=== PATIENT | male | born 1975 | race Caucasian/White ===

== ENCOUNTER 2023-01-06 11:48 | Emergency (ER) | payer BC, SELFPAY ==
[2023-01-06 12:03] VITALS: BP 140/85; PULSE 96; RESP 18; TEMP 36.6; O2SAT 97; BMI 27.6
--- NOTE | 2023-01-06 13:03 | ED.FALL ---
HPI - Fall General Date Seen: 01/06/23 Chief Complaint: Fall/Minor Trauma Stated Complaint: Fell, L side hip injury Time Seen by Provider: 01/06/23 11:49 Source: patient Mode of arrival: ambulatory Limitations: no limitations History of Present Illness HPI Narrative: Patient is a 47-year-old male presenting to the emergency department for left hip pain after a ground level fall this morning. Patient states he tripped over a chair causing her fall. S of pain to his left have some mild pain to elbows clots was able to walk in [employer] work. States that this going on pain has been getting worse despite pain medication taken at home. He noticed a hematoma on his left hip with pain better so he went to the urgent care and was sent here after x-rays show a large hematoma. No other concerns at this time. Denies numbness, weakness. Says his elbow pain has improved greatly not regularly use remember this time. Denies hitting his head Related Data Previous Rx's Medication Instructions Recorded oxycodone 5 mg tablet 5 mg PO Q6H PRN pain #6 tabs 01/06/23 Allergies Allergy/AdvReac Type Severity Reaction Status Date / Time adhesive tape Allergy Verified 01/06/23 12:03 Review of Systems Narrative: Negative unless stated in HPI Exam Narrative: Exam Narrative: Const: Well-nourished, Well-developed, in mild distress Eyes: PERRL, no conjunctival injection, and symmetrical lids HENT: Atraumatic external nose and ears. Moist mucous membranes. CV: Dorsalis pedis pulses +2 bilaterally MSK: Swelling and bruising knows to left hip, relatively firm hematoma felt, Normal Active ROM, no tenderness noted to the rest of joints and body Skin: Warm, Dry. No rashes or lesions. Neuro: Normal Muscle tone, No focal neurological deficits. Psych: Awake, Alert, & Oriented x3. Appropriate mood and affect. Const: Vital Signs, click to edit/add: Vital Signs - 24 hr 01/06/23 12:03 Temperature 97.9 F Pulse Rate [Pulse Oximeter] 96 Respiratory Rate 18 Blood Pressure [Ri ght Upper Arm] 140/85 H Pulse Oximetry 97 Oxygen Delivery Me thod Room Air Course Vital Signs Vital signs: Initial Vital Signs Temperature 97.9 F 01/06/23 12:03 Temperature Source Temporal Artery Scan 01/06/23 12:03 Pulse Rate 96 01/06/23 12:03 Pulse Rhythm Regular 01/06/23 12:03 Respiratory Rate 18 01/06/23 12:03 Blood Pressure 140/85 H 01/06/23 12:03 Blood Pressure Mean 103 01/06/23 12:03 Blood Pressure Position Sitting 01/06/23 12:03 Pulse Oximetry 97 01/06/23 12:03 Oxygen Delivery Method Room Air 01/06/23 12:03 Vital Signs Temperature 97.9 F 01/06/23 12:03 Pulse Rate 96 01/06/23 12:03 Respiratory Rate 18 01/06/23 12:03 Blood Pressure 140/85 H 01/06/23 12:03 Pulse Oximetry 97 01/06/23 12:03 Oxygen Delivery Method Room Air 01/06/23 12:03 Temperature 97.9 F 01/06/23 12:03 Pulse Rate 96 01/06/23 12:03 Respiratory Rate 18 01/06/23 12:03 Blood Pressure 140/85 H 01/06/23 12:03 Pulse Oximetry 97 01/06/23 12:03 Oxygen Delivery Method Room Air 01/06/23 12:03 MDM - Fall MDM Narrative Medical decision making narrative: Patient is a 47-year-old male presenting for left hip pain. He was concerned because the hematoma to his left hip has been getting bigger over the past few hours since his initial fall earlier this morning. Was sent to us from urgent care. Has no neurological issues and has good dorsalis pedis pulses. No other concerns at this time. Imaging was a reddish done showing this large hematoma with no signs of fracture. He is ambulatory and not believe further imaging is necessary. Since he is neurovascular intact in the hematoma was only been going for few hours and a belief is necessary to intervene. Symptoms should resolve on their own. Informed patient to follow-up with orthopedics or his primary care provider over the next 2-3 days if symptoms worsen. Patient states he is agreeable with this plan. Patient was requesting pain meds and concerning signs the Aleyda believe he is in relatively decent amount of pain. She will be prescribed a few oxycodone Discharge Plan Discharge Clinical Impression: Hematoma Patient Disposition: Home, Self-Care Condition: Stable Instructions: Bone Bruise (ED) Additional Instructions: Follow-up with [facility] over the next 2-3 days if hematoma continues to expand or if you develop any new or worsening symptoms Prescriptions: New oxycodone 5 mg tablet 5 mg PO Q6H PRN (Reason: pain) Qty: 6 0RF Follow Up/Referrals: Provider,Not a Local [Referring] - Stand Alone Forms: [facility] Info Instructions
== END 2023-01-06 13:17 | disposition home or self-care (01) ==
PROVIDERS: Emergency Provider Student in an Organized Health Care Education/Training Program; PCP Internal Medicine
DX: S70.02XA Contusion of left hip, initial encounter (principal); W18.30XA Fall on same level, unspecified, initial encounter
CPT/HCPCS: 99282

== ENCOUNTER 2023-10-10 19:53 | Emergency (ER) | payer OTHER, SELFPAY ==
[2023-10-10] VITALS (15 sets, daily range): BP systolic 140–154; BP diastolic 92–99; PULSE 74–89; RESP 18; TEMP 36.9; O2SAT 94–99; BMI 27.7
--- NOTE | 2023-10-10 20:05 | ED.CHESTPAIN ---
HPI - Chest Pain General Time Seen by Provider: 20:05 Date Seen: 10/10/23 Chief Complaint: Chest Pain Stated Complaint: Chest pains Time Seen by Provider: 10/10/23 20:05 Source: patient and RN notes reviewed Mode of arrival: ambulatory Limitations: no limitations History of Present Illness HPI narrative: Adolfo is a very pleasant 48-year-old gentleman with history of ADHD currently on methylphenidate for the past 3 months who comes to the emergency room with complaints of chest tightness as well as discomfort in his neck arm and left leg. Adolfo states that he really has not felt well for the past week. Tonight he describes chest tightness occurring at approximately 1530 hours after he had been sustaining a house today. He notes that it was fairly strong while he was sitting and the discomfort radiated into his left jaw the left side of his neck and into his left arm. He states he also noticed discomfort radiating into his left foot and ankle. He notes that these symptoms continue and they decided to come into the emergency room. His significant other notes that he seemed to be out of breath when hurrying to get into the car earlier in the evening. When he is still he does not have as much discomfort. He notes that currently he has an aching feeling in the left side of his chest and he does have discomfort in his toes. He has no history of heart problems although his mom has had to wear Holter monitor in the past. He does not use tobacco, has no history of addiction or drug use. He does use alcohol 2 to 3 times a week. He does not know his cholesterol. He did take a COVID test prior to arrival and that was negative at home. He does not report any symptoms of runny nose sore throat cough cold congestion or fever. Earlier in the past week he had noticed some chest tightness and feeling like he was hung over associated with feeling sweaty and cold. This lasted for 6-8 hours. He had just arrived in [place] after flying there. He states that he went to lay down in the hotel and this helped quite a bit. However, during the next few days he did feel quite right and thought maybe he had some motion sickness. He took Dramamine but it made it worse. He states that he has been noticing that his heart rate has been intermittently elevated. Normally he states that it run 75-80 and at times during the past week it was 115-125. He did have a harder time catching his breath during this time. He notes his blood pressure is higher as well and describes a 10-15 point elevation in the systolic blood pressure. This was all noted via his Apple watch. Adolfo denies lower extremity edema, history of DVT, cough, hemoptysis. He has not had any nausea or diarrhea. He has not had any recent trauma. Patient does see an online physician for his methylphenidate/ADHD needs. He is going to establish with Dr. Chapin, here at the [facility] on November 12. Related Data Home Medications ?Medication ?Instructions ?Recorded ?Confirmed methylphenidate HCl 27 mg 27 mg PO QAM 10/10/23 10/10/23 tablet,extended release 24 hr Allergies Allergy/AdvReac Type Severity Reaction Status Date / Time adhesive tape Allergy Verified 10/10/23 20:06 Review of Systems Status of ROS Reports: 10 or more systems reviewed and unremarkable except as noted in History and below Const Denies: fever, chills or fatigue Eyes Denies: change in vision or blurry vision ENMT Reports: neck pain (Left-sided); Denies: throat pain, throat swelling, difficulty swallowing, vertigo, nasal discharge or nasal congestion Cardio Reports: chest pain, palpitations (With rapid heart rate.) and shortness of breath with exertion; Denies: edema, swelling of feet/ankles or lightheadedness Resp Reports: shortness of breath; Denies: cough, wheezing or stridor GI Denies: abdominal pain, nausea, vomiting, diarrhea or difficulty swallowing Denies: painful urination or urinary frequency Musculo Reports: neck pain (Left-sided) and extremity pain (Left foot and ankle); Denies: back pain or extremity swelling Integ/Breast Denies: rash Neuro Denies: headache, numbness in extremities, weakness in extremities, lack of coordination, dizziness or vertigo Endo Denies: fatigue Allergy/Immuno Denies: throat swelling or wheezing PFSH PFS Social History Smoking Status: Never smoker Do you use any of these nicotine containing products: None Second hand tobacco smoke exposure: No How often do you have a drink containing alcohol: never How often do you have six or more drinks on one occasion: Never AUDIT-C Alcohol total score: 0 Non-prescribed substance use: denies use Exam Narrative Exam Narrative: Adolfo is alert and oriented. He is not in any acute distress. Appropriate color. EOM is full. Face symmetrical. Mentation normal, speech normal. Neck is supple without lymphadenopathy. No pain with palpation of the cervical midline. Negative Spurling sign. Patient does note when he turns his head to the left however he has increased neck pain. No change in arm or leg pain. Heart with regular rate and rhythm without murmur rub or additional heart sounds. Initially crackles noted in the left lower lobe but these cleared with deep inspiration. Abdomen soft nontender. Lower extremities without edema. No calf tenderness. Mild discomfort with palpation on the dorsal midfoot. No erythema ecchymosis. Good pedal pulses bilaterally and capillary refill is intact and brisk. Const Vital Signs, click to edit/add: Vital Signs - 24 hr 10/10/23 20:04 10/10/23 20:09 10/10/23 20:15 Temperature 98.5 F Pulse Rate 85 84 Pulse Rate [Right Pulse Oximeter] 82 Respiratory Rate 18 Blood Pressure Blood Pressure [Right Upper Arm] 154/95 H Pulse Oximetry 99 96 95 Oxygen Delivery Method Room Air 10/10/23 20:30 10/10/23 20:32 10/10/23 20:45 Temperature Pulse Rate 85 89 Pulse Rate [Right Pulse Oximeter] Respiratory Rate Blood Pressure 140/95 H Blood Pressure [Right Upper Arm] Pulse Oximetry 94 95 Oxygen Delivery Method 10/10/23 21:00 10/10/23 21:02 10/10/23 21:15 Temperature Pulse Rate 87 84 81 Pulse Rate [Right Pulse Oximeter] Respiratory Rate Blood Pressure 141/92 H Blood Pressure [Right Upper Arm] Pulse Oximetry 95 95 95 Oxygen Delivery Method 10/10/23 21:30 10/10/23 21:32 10/10/23 21:45 Temperature Pulse Rate 84 81 81 Pulse Rate [Right Pulse Oximeter] Respiratory Rate Blood Pressure 153/99 H Blood Pressure [Right Upper Arm] Pulse Oximetry 96 96 96 Oxygen Delivery Method 10/10/23 22:00 10/10/23 22:06 10/10/23 22:15 Temperature Pulse Rate 79 74 81 Pulse Rate [Right Pulse Oximeter] Respiratory Rate Blood Pressure Blood Pressure [Right Upper Arm] Pulse Oximetry 94 96 94 Oxygen Delivery Method Course Course ED Course: At this time patient does describe symptoms concerning for possible underlying angina, acute coronary event, possible PE. However, the left foot discomfort does not easily fit into these diagnoses. He did recently travel and thus I do think that PE, DVT is a possible consideration. He has no respiratory symptoms and his COVID test is negative and therefore I do not think that this is a viral cause. When he did turn his head he did have increased discomfort in his neck and therefore I must also consider a musculoskeletal etiology. At this time will order CBC, comprehensive, CRP, troponin, D-dimer, urinalysis chest x-ray monitor and storage bin tender. Reevaluation(s) Reevaluation #1: Initial cardiac enzyme negative. EKG reassuring. Patient notes that he may have had foot pain last week. Perhaps this is completely unrelated to his current chest discomfort. Because of negative test including D-dimer will give him a trial of Toradol 15 mg IV. Reevaluation #2: Nursing staff notes that patient's remembered that Adolfo is very sensitive to any adhesives. In the past with an IV he has actually gotten swelling of his arm requiring the treatment with prednisone. It appeared that the Tegaderm covering was the problem. We have now removed that covered his IV with gauze and small amount to [place] around the gauze but not touching the skin. Vital Signs Vital signs: Initial Vital Signs Temperature 98.5 F 10/10/23 20:04 Temperature Source Temporal Artery Scan 10/10/23 20:04 Pulse Rate 82 10/10/23 20:04 Pulse Rhythm Regular 10/10/23 20:04 Pulse Strength 3+ Normal 10/10/23 20:04 Respiratory Rate 18 10/10/23 20:04 Blood Pressure 154/95 H 10/10/23 20:04 Blood Pressure Mean 114 H 10/10/23 20:04 Blood Pressure Position Sitting 10/10/23 20:04 Pulse Oximetry 99 10/10/23 20:04 Oxygen Delivery Method Room Air 10/10/23 20:04 Vital Signs Temperature 98.5 F 10/10/23 20:04 Pulse Rate 82 10/10/23 20:04 Respiratory Rate 18 10/10/23 20:04 Blood Pressure 154/95 H 10/10/23 20:04 Pulse Oximetry 99 10/10/23 20:04 Oxygen Delivery Method Room Air 10/10/23 20:04 Temperature 98.5 F 10/10/23 20:04 Pulse Rate 81 10/10/23 22:15 Respiratory Rate 18 10/10/23 20:04 Blood Pressure 153/99 H 10/10/23 21:32 Pulse Oximetry 94 10/10/23 22:15 Oxygen Delivery Method Room Air 10/10/23 20:04 Medications Administered Medications: Discontinued Medications Generic Name Dose Route Start Last Admin Trade Name Germaine PRN Reason Stop Dose Admin Ketorolac Tromethamine 15 mg 10/10/23 22:01 10/10/23 22:13 Ketorolac 15 Mg/Ml Inj IVP 10/10/23 22:02 15 mg ONCE ONE Administration MDM - Chest Pain MDM Narrative Medical decision making narrative: 1. Atypical chest pain -patient has a reassuring EKG, 2 sets of negative cardiac enzymes and no evidence of arrhythmia on the monitor and storage bin tender. Given his symptoms however I do wish that he would have follow-up with Heart monitoring in the form of ZIO patch as well as stress test. He does not have an appointment with our clinic until November. Therefore will attempt to arrange ZIO patch, stress test on Wednesday. Patient should await phone call from the ER for scheduling. Patient did receive Toradol and has had resolution of his symptoms especially of his foot. Patient did receive baby aspirin prior to departure. 2. Left foot pain -at this time no known trauma. Patient notes that pain is improved after Toradol. 3. Disposition-home at this time. Patient agrees that he feels safe to go home. Will discontinue methylphenidate as perhaps this is increasing heart rate and blood pressure. This will be temporary until he is evaluated by stress test. Also advising against any activity that increases heart rate until stress test. Return to the emergency room as needed for worsening symptoms. Medical Records Data Attestation: I reviewed the patient's medical records. Lab Data Attestation: I reviewed the patient's lab results. Labs: Lab Results 10/10/23 10/10/23 10/10/23 Range/Units 20:25 20:30 22:00 WBC 5.54 (4.50-11.00) K/uL RBC 4.95 (4.30-5.90) m/uL Hgb 14.4 (13.5-17.5) gm/dL Hct 43.6 (37.0-53.0) % MCV 88 (80-100) fL MCH 29 (26-34) pg MCHC 33 (32-36) gm/dL RDW Coeff of Charly 11.8 (11.5-15.5) % Plt Count 211 (140-440) K/uL Neut % (Auto) 46.3 (42.0-72.0) % Lymph % (Auto) 38.8 (20-44) % [place] % (Auto) 11.7 H (0.0-11.0) % Eos % (Auto) 2.5 (0.0-7.0) % Baso % (Auto) 0.5 (0.0-3.0) % Neut # (Auto) 2.56 (1.7-7.0) K/uL Lymph # (Auto) 2.15 (0.90-2.90) K/uL [place] # (Auto) 0.60 (0.00-0.90) K/UL Eos # (Auto) 0.14 (0.00-0.50) K/uL Baso # (Auto) 0.03 (0.00-0.30) K/uL Abs Immat Gran (auto) 0.01 (0.00-0.30) K/uL Imm/Tot Granulo (auto) 0.2 % D-Dimer Quant (PE/DVT) < 0.27 (0.00-0.50) ug/ml Sodium 137 (135-149) mmol/L Potassium 4.1 (3.6-5.1) mmol/L Chloride 102 (96-114) mmol/L Carbon Dioxide 28 (20-32) mmol/L Anion Gap 7 (7-15) mEq/L BUN 20 (5-24) mg/dL Creatinine 1.1 (0.5-1.5) mg/dL Estimated Creat Clear 95.48 Estimated GFR 83 ml/min Glucose 92 (60-115) mg/dL Calcium 8.9 (8.4-10.6) mg/dL Magnesium 2.2 (1.5-2.6) mg/dL Total Bilirubin 0.4 (0.1-1.5) mg/dL AST 54 H (12-35) U/L ALT 75 H (4-50) U/L Alkaline Phosphatase 86 (40-150) U/L C-Reactive Protein < 0.5 L (0.5-1.0) mg/dL Total Protein 7.6 (6.0-8.3) g/dL Albumin 4.7 (3.3-5.0) g/dL Urine Color Yellow (Yellow) Urine Appearance Clear (Clear) Urine pH 7.0 (5.0-8.5) Ur Specific [place] >= 1.030 (1.000-1.030) Urine Protein Negative (Negative) Urine Glucose (UA) Negative (Negative) Urine Ketones Negative (Negative) Urine Blood Negative (Negative) Urine Nitrite Negative (Negative) Urine Bilirubin Negative (Negative) Urine Urobilinogen 0.2 (0.2-1.0) Ur Leukocyte Esterase Negative (Negative) Urine RBC 0-2 (0-2) Urine WBC 0-2 (0-5) Ur Squamous Epith Cells None (None-Few) Urine Bacteria None (None) POC Troponin I 0.00 L 0.00 L (0.01-0.04) ng/ml Imaging Data Chest x-ray: Attestation: I have reviewed the pertinent imaging results. My impression: By my read no acute findings. Radiologist's impression: No substantial pleural effusion. No definite focal pulmonary consolidation. Normal heart size. No acute osseous findings. IMPRESSION: No acute thoracic findings. ECG Data Attestation: I personally reviewed and interpreted this ECG as follows: ECG interpretation date: 10/10/23 ECG interpretation time: 21:09 Interpretation: EKG by my read shows sinus rhythm at a rate of 85. I do not note any acute ST or T-wave changes. QT and NV intervals within normal limits. Discharge Plan Discharge Clinical Impression: Atypical chest pain Patient Disposition: Home, Self-Care Condition: Improved Additional Instructions: At this time your EKGs and blood test for heart attack are negative. We have not seen any evidence of atrial fibrillation on our monitor in the ED. that being said, I strongly advise you to follow up with a physician for initiation of a ZIO patch or heart monitoring as well as stress test. I will have that arranged and have them give you a call on Wednesday. At this time I recommend you discontinue methylphenidate until we have ruled out any underlying heart issues. Recommend avoiding caffeine, any activity which is increases the heart rate at this time including sexual activity. Recommend baby aspirin 81 mg daily. Return to the emergency room for worsening symptoms and as needed. Prescriptions: No Action methylphenidate HCl 27 mg tablet extended release 24hr 27 mg PO QAM Follow Up/Referrals: Pari Chapin MD [Primary Care Provider] - Stand Alone Forms: [employer] Info Instructions
--- NOTE | 2023-10-10 20:25 | CRLHL7_ITS ---
For Patients: As a result of the Century Cures Act, medical imaging exams and procedure reports are released immediately into your electronic medical record. You may view this report before your referring provider. If you have questions, please contact your health care provider. INDICATION: Chest pain COMPARISON: 02/14/2017 chest radiograph TECHNIQUE: Single frontal radiographic view(s) of the chest. FINDINGS: No substantial pleural effusion. No definite focal pulmonary consolidation. Normal heart size. No acute osseous findings. IMPRESSION: No acute thoracic findings. Dictated by Gigi Argueta MD @ 10/10/2023 9:10:20 PM (Electronically Signed)
[2023-10-10 20:39] LABS: Basophils Absolute Auto 0.03 K/uL (0.00-0.30); Basophils Percent Auto 0.5 % (0.0-3.0); Eosinophils Absolute Auto 0.14 K/uL (0.00-0.50); Eosinophils Percent Auto 2.5 % (0.0-7.0); Hematocrit 43.6 % (37.0-53.0); Hemoglobin* 14.4 gm/dL (13.5-17.5); Immature Granulocytes Abs Auto 0.01 K/uL (0.00-0.30); Immature Granulocytes Pct Auto 0.2 %; Lymphocytes Absolute Auto 2.15 K/uL (0.90-2.90); Lymphocytes Percent Auto 38.8 % (20-44); Mean Corpuscular HGB Conc 33 gm/dL (32-36); Mean Corpuscular Hemoglobin 29 pg (26-34); Mean Corpuscular Volume 88 fL (80-100); Monocytes Percent Auto 11.7 % (0.0-11.0); Neutrophils Absolute Auto 2.56 K/uL (1.7-7.0); Neutrophils Percent Auto 46.3 % (42.0-72.0); Platelet Count* 211 K/uL (140-440); RDW Coefficient of Variation % 11.8 % (11.5-15.5); Red Blood Count 4.95 m/uL (4.30-5.90); White Blood Count* 5.54 K/uL (4.50-11.00)
[2023-10-10 20:40] LABS: Slide Review Reflex No
[2023-10-10 20:41] LABS: Appearance Urine Clear (Clear); Bilirubin Urine Negative (Negative); Blood Urine Negative (Negative); Color Urine Yellow (Yellow); Glucose Urine Negative (Negative); Ketones Urine Negative (Negative); Leukocyte Esterase Urine Negative (Negative); Nitrite Urine Negative (Negative); Protein Urine Negative (Negative); Specific Gravity Urine >= 1.030 (1.000-1.030); Urobilinogen Urine 0.2 (0.2-1.0)
[2023-10-10 20:50] LABS: RBC Urine 0-2 (0-2); WBC Urine 0-2 (0-5)
[2023-10-10 20:53] LABS: Albumin* 4.7 g/dL (3.3-5.0); Chloride* 102 mmol/L (96-114); Sodium* 137 mmol/L (135-149)
[2023-10-10 20:54] LABS: Potassium* 4.1 mmol/L (3.6-5.1)
[2023-10-10 20:56] LABS: Alkaline Phosphatase* 86 U/L (40-150); Anion Gap 7 mEq/L (7-15); Aspartate Amino Transferase* 54 U/L (12-35); Bilirubin Total* 0.4 mg/dL (0.1-1.5); Blood Urea Nitrogen* 20 mg/dL (5-24); Carbon Dioxide* 28 mmol/L (20-32); Creatinine* 1.1 mg/dL (0.5-1.5); Est. Creatinine Clearance* 95.48; Estimated Glomerular Filt Rate 83 ml/min; Total Protein* 7.6 g/dL (6.0-8.3)
[2023-10-10 20:57] LABS: Alanine Aminotransferase* 75 U/L (4-50); Calcium* 8.9 mg/dL (8.4-10.6); Glucose* 92 mg/dL (60-115); Magnesium* 2.2 mg/dL (1.5-2.6)
[2023-10-10 21:03] LABS: C Reactive Protein* < 0.5 mg/dL (0.5-1.0)
[2023-10-10 21:05] LABS: D Dimer Quantitative* < 0.27 ug/ml (0.00-0.50)
[2023-10-10] MEDS: KETOROLAC 15 MG/ML inj IVP (22:13)
[2023-10-10] MEDS: ASPIRIN 81 MG TABLET EC PO (22:57)
== END 2023-10-10 23:10 | disposition home or self-care (01) ==
PROVIDERS: Emergency Provider Family Medicine; PCP Family Medicine
DX: R07.9 Chest pain, unspecified (principal)
CPT/HCPCS: 36415; 71045; 80053; 81001; 83735; 84484; 85025; 85379; 86140; 93005; 96374; 99283; 99284; A9270; J1885

== ENCOUNTER 2023-10-19 13:35 | Outpatient (CLI) | payer OTHER, SELFPAY ==
[2023-10-19 15:16] VITALS: BP 164/86; PULSE 106; RESP 18
--- NOTE | 2023-10-19 15:21 | W.PM.STED ---
Stress Test Note Date Date of test: 10/19/23 Providers Primary care provider: Pari Chapin Stress test physician: Israel Flores Stress Test Note Stress test ordered: Stress Echo Indication for test: Atypical chest pain Results discussion: Patient is a very nice 48-year-old gentleman who presents for the above test after discussion the risks benefits and side effects he would like to proceed pretest EKG shows normal sinus rhythm, there is no acute changes suggestive of ischemia, blood pressure was 142/92. Ventricular rate was 71, standard Niraj protocol is done over a time course of 15 minutes 2nd and achieved a metabolic equivalent of 14.9 Mets with a maximum heart rate of 178 which is 121% of the maximum. During this test there is no ST wave changes suggestive of ischemia, there is some mild ST wave changes all indeterminate. He did not have any subjective complaints during this test, and conditioning was felt to be excellent. Impression: Negative electrographic portion of stress echo, subjectively negative, conditioning felt to be excellent Follow up suggested: Await echo images these will be reviewed by Cardiology, clinical correlation with these will be needed, the left this testing facility in good condition, there were no complication
== END 2023-10-19 15:18 | disposition home or self-care (01) ==
LOC: STRESS 13:35
PROVIDERS: PCP Family Medicine; Visit Provider Family Medicine
DX: R07.89 Other chest pain (principal)
CPT/HCPCS: 93016; 93325; 93351

== ENCOUNTER 2023-11-11 15:26 | Outpatient (CLI) | payer OTHER, SELFPAY | END 2023-11-11 15:27 | disposition home or self-care (01) | PROVIDERS: PCP Family Medicine; Visit Provider Family Medicine | DX: R00.0 Tachycardia, unspecified (principal); R03.0 Elevated blood-pressure reading, without diagnosis of hypertension; R79.89 Other specified abnormal findings of blood chemistry; Z13.6 Encounter for screening for cardiovascular disorders | CPT/HCPCS: 80053; 80061; 84443 ==

== ENCOUNTER 2024-08-30 16:53 | Emergency (ER) | payer OTHER, SELFPAY ==
--- OUTSIDE RECORDS SUMMARY | 2024-08-30 16:55 | XMS_ITS | Clinical Summary ---
Author Organization [facility] Address [address] [place] [id number] Care Team Providers Care Elevator Constructor Electric Name Role Phone Pari Chapin MD Primary Care Provider + Clinic, No Pcp Or Unavailable Unavailable Allergies Active Allergy Reactions Criticality Noted Date Comments Adhesive Tape-Silicones Rash,Contact Dermatitis 04/16/2017 Medications No known medications Active Problems Problem Noted Date Diagnosed Date Osteoarthritis of spine with radiculopathy, cerv ical region 05/31/2018 Bilateral carpal tunnel syndrome 05/31/2018 Immunizations Immunization Administration Dates Next Due COVID-19 vaccine (RemitlyBio NTech 30mcg/0.3mL) ALEJANDRA WILKINS 01/21/2021,06/15/2020,05/25/2020 Influenza Virus, Unspecified 12/06/1997 Influenza, IIV3 (Age >=3 years) 12/01/2011,12/02 Influenza, IIV4 10/25/2017,11/30/2012 Tdap 05/31/2018 Family History Medical History Relation Name Comments Hyperlipidemia Father Hypertension Father Polycystic kidney disease Father Aneurysm Mother Hypertension Mother Relation Name Status Comments Father Mother Social History Tobacco Use Types Packs/Day Years Used Date Smoking Tobacco: Never Smokeless Tobacco: Former Chew Quit: 04/16/2016 Tobacco Cessation:Counseling Given: Yes Alcohol Use Standard Drinks/Week Comments Yes 0 (1 standard drink = 0.6 oz pur e alcohol) whiskey in evenings PHQ-2 Answer Date Recorded PHQ-2 TOTAL SCORE 0 04/27/2022 Social Connections Answer Date Recorded Frequency of Communication with Friends and Fami ly 0 04/27/2022 Financial Resource Strain Answer Date R ecorded Difficulty of Paying Living Expenses 3 04/27/2022 Difficulty of Paying Living Expenses Not on file 04/27/2022 Food Insecurity Answer Date Recorded Worried About Running Out of Food in the Last Ye ar 1 04/27/2022 Transportation Needs Answer Date Record ed Lack of Transportation (Medical) 1 04/27/2022 Housing Stability Answer Date Recorded Unable to Pay for Housing in the Last Year 1 04/27/2022 Sex and Gender Information Value Date Recorded Sex Assigned at Not on file Legal Sex Male 6:41 AM COPYIST Gender Identity Not on file Sexual Orientation Not on file Obstetrics History Last Filed Vital Signs Vital Sign Reading Time Taken Comments Blood Pressure 130/86 04/27/2022 1:16 PM CDT Pulse 68 04/27/2022 1:16 PM CDT Temperature 36.9 C (98.5 F) 09/03/2020 2:37 PM CDT Respiratory Rate 18 10/04/2014 5:11 PM CDT Oxygen Saturation 96% 09/03/2020 2:37 PM CDT Inhaled Oxygen Concentration - - Weight 96.4 kg (212 lb 9.6 oz) 04/27/2022 1:16 P M CDT Height 182.9 cm (6') 04/27/2022 1:16 PM CDT Body Mass Index 28.83 04/27/2022 1:16 PM CDT Plan of Treatment Health Maintenance Due Date Last Done Comments Hepatitis C screening for age 18-79 1993 Hepatitis B series for 19+ (1 of 3 - 19+ 3-dose series) 1994 Colonoscopy through age 75 02/14/2020 BMI (ht and wt on same day) for age 18+ 04/28/2023 04/27/2022, 05/31/2018, 10/25/2017, Additional history exists Depression screening for age 12+ 04/28/2023 04/27/2022, 06/01/2018, 05/31/2018, Additional history exists COVID-19 vaccine series ( season) 2023 01/21/2021, 06/15/2020, 05/25/2020 Influenza Vaccine (#1) 2024 8, 11/30/2012, 12/01/2011, Additional history exists Lipids for age 45-75 04/28/2027 04/27/2022, 06/01/2018, 10/25/2017 Tetanus booster 05/31/2028 05/31/2018 HIV for age 15-65 Completed 04/27/2022 Pneumococcal series for age 6-49 Aged Out No longer eligible based on patient's age to complete this topic Procedures Procedure Name Priority Date/Time Associated Diagnosis Comments LC HIV-1/O/2, 4TH GENERATION Routine 04/27/2022 4:49 PM CDT Routine general medical examination at a health care facility LC LIPID PANEL AND CHOL/HDL RATIO Routine 04/27/2022 4:49 PM CDT Routine general medical examination at a health care facility from Last 3 Months or Most Recently Relevant to Health Maintenance Results * (ABNORMAL) LC LIPID PANEL AND CHOL/HDL RATIO (04/27/2022 4:49 PM CDT) [facility] Cholesterol, Total 230(H) 100 - 199 mg/dL 04/29/2022 9:[address] Triglycerides 198(H) 0 - 149 mg/dL 04/29/2022 9:10 AM CDT [facility] HDL Cholesterol 41 >39 mg/dL 9:10 AM CDT [facility] VLDL Cholesterol Jose G 36 5 - 40 mg/dL 04/29/2022 9:10 AM CDT [facility] LDL Chol Calc (NIH) 153(H) 0 - 99 mg/dL 04/29/2022 9:10 AM CDT [facility] T. Chol/HDL Ratio 5.6(H) 0.0 - 5.0 ratio 04/29/2022 9:10 AM CDT [facility] Comment: T. Chol/HDL Ratio Men Women 1/2 Avg.Risk 3.4 3.3 Avg.Risk 5.0 4.4 2X Avg.Risk 9.6 7.1 3X Avg.Risk 23.4 11.0 Blood BLOOD SPECIMEN / Unknown Venipuncture / Unknown 04/27/2022 4:49 PM CDT 04/27/2022 1:50 PM CDT [facility] ([facility]) - 04/29/2022 9:10 AM CDT Performed at: [address] [id number] Taximeter Repairer: Magan Toure MD, Phone: [phone] Jose E Alonzo MD SEND OUTS Final R esult Performing Organization Address City/[facility]/ZIP Co de Phone Number [facility] ([facility]) [address] [place] [address] * HIV-1/O/2, 4TH GENERATION (04/27/2022 4:49 PM CDT) HIV Scr 4th Gen Non Reactive Non Reactive 04/29/2022 10:06 PM CDT [facility] ([facility]) Comment: HIV Negative HIV-1/HIV-2 antibodies and HIV-1 p24 antigen were NOT detected. There is no laboratory evidence of HIV infection. Blood BLOOD SPECIMEN / Unknown Venipuncture / Unknown 04/27/2022 4:49 PM CDT 04/27/2022 1:50 PM CDT [facility] ([facility]) - 04/29/2022 10:06 PM CDT Performed at: [address] [id number] Taximeter Repairer: Magan Toure MD, Phone: [phone] Jose E Alonzo MD LABORATORY Final R esult Performing Organization Address City/[facility]/ZIP Co de Phone Number [facility] ([facility]) [address] [place], [place] [id number], from Last 3 Months or Most Recently Relevant to Health Maintenance Insurance [employer] Care Teams Elevator Constructor Electric Relationship Specialty Start Date End Date Pari Chapin MD [address] [place] [address] PCP - General Family Practice 10/19/23 Clinic, No Pcp Or . 10/19/23
--- OUTSIDE RECORDS SUMMARY | 2024-08-30 16:55 | XMS_ITS | Clinical Summary ---
Author Organization [facility] Address [address], [place] [address] Care Team Providers Care Process Controller Name Role Phone Jose E Alonzo MD Primary Care Provider + [phone] Source Comments You are receiving this document as you are listed as the primary care provider,follow-up provider, or the patient has been referred to you for consultation.This is in compliance with the Medicare and[facility] EHR Incentive Program,which states Providers who transition their patient to another setting of careor provider of care or refers their patient to another provider of care shouldprovide summary care record for each transition of care or referral. [facility] Allergies No known active allergies Medications oxycoDONE-aceta minophen (AKA PERCOCET) 5-325 MG tablet Take 1-2 Tabs by mouth every 4 hours as needed for Pain. 15 Tab 0 05/28/2009 Active ibuprofen (AKA MOTRIN) 600 MG tablet Take 1 Tab by mouth every 6 hours as needed for Pain. 30 Tab 0 05/28/2009 Active DIAZEpam (AKA VALIUM) 5 MG tablet Take 1 Tab by mouth every 6 hours as needed for Anxiety. for muscle spasm 15 Tab 0 05/28/2009 Active predniSONE (DELTASONE) 10 MG tablet 6 tablets daily x 3 days and then decrease by one tablet daily 33 Tab 02/19/2017 Active Active Problems No known active problems Immunizations Immunization Administration Dates Next Due Influenza, Unspecified Formulation 12/06/1997 Social History Tobacco Use Types Packs/Day Years Used Date Smoking Tobacco: Never Smokeless Tobacco: Never Alcohol Use Standard Drinks/Week Comments Yes 0 (1 standard drink = 0.6 oz pur e alcohol) 2 drinks per night Sex and Gender Information Value Date Recorded Sex Assigned at Not on file Legal Sex Male 5:25 AM CDT Gender Identity Not on file Sexual Orientation Not on file Occupation Industry Job Start Date Job End Date [employer]age [employer] Not on file Not on kali e Not on file Last Filed Vital Signs Vital Sign Reading Time Taken Comments Blood Pressure 143/94 02/19/2017 1: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[employer] Pulse 78 02/19/2017 1: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CE Temperature 36.4 C (97.5 F) 02/19/2017 1: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CE Respiratory Rate 15 02/19/2017 1: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CE Oxygen Saturation 100% 02/19/2017 1: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CE Inhaled Oxygen Concentration - - Weight 95.3 kg (210 lb) 12/05/2012 2:29 PM CDT Height 185.4 cm (6' 1) 08/23/2012 10:54 AM CDT Body Mass Index 27.71 08/23/2012 10:54 AM CDT Plan of Treatment Health Maintenance Due Date Last Done Comments Colon Cancer Screening Plan Due 1975 Hep C Screening (Preventive Services) 1975 HIV Screening (Preventive Services) 1991 Adult Preventive Visit 1993 DTaP/Tdap/Td Vaccine (1 - Tdap) 1994 HepB Vaccine (1) 1994 Cholesterol 2010 COVID-19 Vaccine (1 - 2023-2 5 season) 2023 Influenza Vaccine (#1) 2024 12/06/1997 Zoster/Shingles Vaccine (1 of 2) 2025 HepA Vaccine Aged Out No longer eligi ble based on patient's age to complete this topic Hib Vaccine Aged Out No longer eligi ble based on patient's age to complete this topic IPV (Polio) Vaccine Aged Out No longe r eligible based on patient's age to complete this topic MCV4 Vaccine Aged Out No longer eligi ble based on patient's age to complete this topic Meningococcal B Vaccine Aged Out No l onger eligible based on patient's age to complete this topic Pneumococcal Vaccine Aged Out No long er eligible based on patient's age to complete this topic Insurance [facility] Care Teams Process Controller Relationship Specialty [place] [address] [place] [address] [facility] - General 11/05/10
[2024-08-30 17:07] VITALS: BP 152/105; PULSE 94; RESP 18; TEMP 36.6; O2SAT 97; BMI 27.6
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
[2024-08-30] MEDS: MORPHINE 4 MG/ML INJ IVP (18:24)
[2024-08-30 18:29] VITALS: BP 156/104; PULSE 85; RESP 16; O2SAT 95
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
[2024-08-30 19:14] VITALS: O2SAT 95
[2024-08-30 19:18] LABS: Troponin, Point-of-Care* 0.01 ng/ml (0.01-0.04)
[2024-08-30 19:33] VITALS: BP 156/104; PULSE 85; RESP 16; TEMP 36.6
== END 2024-08-30 19:34 | disposition home or self-care (01) ==
PROVIDERS: Emergency Provider Student in an Organized Health Care Education/Training Program; PCP Family Medicine
DX: S16.1XXA Strain of muscle, fascia and tendon at neck level, initial encounter (principal); S29.012A Strain of muscle and tendon of back wall of thorax, initial encounter; V43.52XA Car driver injured in collision with other type car in traffic accident, initial encounter
CPT/HCPCS: 36415; 70450; 71260; 72125; 73030; 84484; 93005; 94761; 96374; 96375; 99284; 99285; 99291; J1200; J2270; Q9967